=== PATIENT | female | born 1970 | race Caucasian/White ===

== ENCOUNTER → 2018-06-19 | Outpatient (CLI) | payer BC ==
--- NOTE | 2018-06-19 15:58 | RADIOLOGY IMAGING REPORT ---
FACILITY: [facility] - [place] PATIENT NAME: Poly Villagran : 1970 MR: [id number] V: [id number] EXAM DATE: ORDERING PHYSICIAN: BRYAN SCHMIDT TECHNOLOGIST: Location: Patient: Poly Villagran : 1970 Visit/Account:[id number] Date of Sevice: 06/19/2018 AP pelvis, one view, and left hip, one view. HISTORY: Left hip pain. COMPARISON: None. The bony pelvis is unremarkable. The hips are normally aligned. No joint space narrowing. The sacro iliac joints and pubic symphysis are unremarkable. No acute fractures are identified. IMPRESSION: Negative for acute bony abnormality. Report Dictated By: Titus Mei MD at 06/19/2018 3:51 PM Report E-Signed By: Titus Mei MD at 06/19/2018 3:53 PM WSN:[id number]
== END ==
LOC: RAD 14:47
PROVIDERS: ATTEND Family Medicine
DX: M25.552 Pain in left hip (principal)